=== PATIENT | male | born 1990 | race African-American/Black ===

== ENCOUNTER 2017-03-27 21:58 | Emergency (ER) | payer OTHER ==
[2017-03-27 22:07] VITALS: BP 126/66; PULSE 62; TEMP 99; BMI 28.8
--- NOTE | 2017-03-27 22:26 | PDOC ---
History of Present Illness - General Chief Complaint: Pain, Acute Stated Complaint: LEFT SIDE PAIN Time Seen by Provider: 03/27/17 22:20 History Source: Patient - History of Present Illness Initial Comments: 03/28/17 00:16 27 year old male c/o left flank pain intermittent in natre. denies NVD, abdominal pain, denies heavy lifting/ trauma. history of left sided kidney stone. 03/28/17 00:32 Past History - Past Medical History Allergies/Adverse Reactions: Allergies Allergy/AdvReac Type Severity Reaction Status Date / Time No Known Allergies Allergy Verified 03/27/17 23:24 Home Medications: Ambulatory Orders NK [No Known Home Medication] 03/27/17 COPD: No Other medical history: kidney stones - Suicide/Smoking/Psychosocial Hx Smoking History: Never smoked Have you smoked in the past 12 months: No Information on smoking cessation initiated: No Hx Alcohol Use: No Drug/Substance Use Hx: No Substance Use Type: None Review of Systems - Review of Systems Able to Perform ROS?: Yes Is the patient limited Welsh proficient: No Constitutional: No: Symptoms Reported, See HPI, Chills, Diaphoresis, Fever, Loss of Appetite, Malaise, Night Sweats, Weakness, Weight Stable, Unintentional Wgt. Loss, Unexplained wgt Loss, Other ABD/GI: No: Symptoms Reported, See HPI, Abdominal Distended, Abd. Pain w/ defecation, Blood Streaked Bowels, Constipated, Diarrhea, Difficulty Swallowing , Nausea, Poor Appetite, Poor Fluid Intake, Rectal Bleeding, Vomiting, Indigestion, Abdominal cramping, Tarry Stools, Other : Yes: Flank Pain (left). No: Symptoms Reported, See HPI, Burning, Dysuria, Discharge, Frequency, Hematuria, Incontinence, Pain, Urgency, Testicular Mass, Testicular Swelling, Lesions, Testicular Pain, Other *Physical Exam - Vital Signs Last Vital Signs Temp Pulse Resp BP Pulse Ox 99 F 62 18 126/66 99 03/27/17 22:03 03/27/17 22:03 03/27/17 22:03 03/27/17 22:03 03/27/17 22:03 - Physical Exam General Appearance: Yes: Appropriately Dressed Respiratory/Chest: positive: Lungs Clear, Normal Breath Sounds Gastrointestinal/Abdominal: positive: Normal Bowel Sounds, Soft. negative: Tender Musculoskeletal: positive: CVA Tenderness (L) (mild) ED Treatment Course - LABORATORY CBC & Chemistry Diagram: 03/27/17 23:15 03/27/17 23:15 *DC/Admit/Observation/Transfer Diagnosis at time of Disposition: Left flank pain - Discharge Dispostion Disposition: HOME - Referrals - Patient Instructions Printed Discharge Instructions: DI for Flank Pain Additional Instructions: drink plenty of fluids. follow up with your doctor take ibuprofen every 6 hours as needed for pain. return to the ED if symptoms worsen. - Post Discharge Activity Forms/Work/School Notes: Back to Work
[2017-03-27] MEDS ORDERED: SODIUM CHLORIDE 1,000 ML IV STA (22:37)
[2017-03-27] MEDS ORDERED: KETOROLAC TROMETHAMINE 30 MG/1 ML VIAL IVPUSH ONE (23:26)
[2017-03-27 23:30] LABS: BASO % 0.7 % (0-2.0); EOS % 1.8 % (0-4.5); LYMPH % 45.6 % (8-40); MCH 27.5 pg (25.7-33.7); MCHC 32.5 g/dl (32.0-35.9); MEAN CELL VOLUME 84.4 fl (80-96); MEAN PLT VOLUME 7.7 fl (7.5-11.1); MONO % 8.1 % (3.8-10.2); NEUT % 43.8 % (42.8-82.8); PLATELET COUNT 246 K/MM3 (134-434); RBC 5.45 M/mm3 (4.00-5.60); RDW 13.9 % (11.9-15.9); WHITE BLOOD COUNT 5.5 K/mm3 (4.0-10.0)
[2017-03-27] MEDS ORDERED: KETOROLAC TROMETHAMINE 30 MG/1 ML VIAL ONE (23:31)
[2017-03-27 23:53] LABS: ANION GAP 8 (8-16); BILIRUBIN,TOTAL 0.6 mg/dL (0.2-1.0); BLOOD UREA NITROGEN 9 mg/dL (7-18); CALCIUM 9.5 mg/dL (8.5-10.1); CHLORIDE 102 mmol/L (98-107); CO2 30 mmol/L (21-32); CREATININE 1.2 mg/dL (0.7-1.3); GLUCOSE,RANDOM 89 mg/dL (74-106); POTASSIUM 3.8 mmol/L (3.5-5.1); SGOT/AST 17 U/L (15-37); SGPT/ALT 25 U/L (12-78); SODIUM 140 mmol/L (136-145); TOT PROT 7.9 g/dl (6.4-8.2)
[2017-03-27 23:54] LABS: ALK PHOS 83 U/L (45-117)
[2017-03-28 01:58] LABS: URINE APPEARANCE TURBID; URINE BILIRUBIN NEGATIVE (NEGATIVE); URINE BLOOD NEGATIVE (NEGATIVE); URINE COLOR YELLOW; URINE GLUCOSE (UA) NEGATIVE (NEGATIVE); URINE KETONE NEGATIVE (NEGATIVE); URINE LEUK ESTERASE NEGATIVE (NEGATIVE); URINE NITRITE NEGATIVE (NEGATIVE); URINE PROTEIN NEGATIVE (NEGATIVE)
== END 2017-03-28 02:40 | disposition home or self-care (01) ==
LOC: JER 21:58
PROC: 3E0337Z Introduction of Electrolytic and Water Balance Substance into Peripheral Vein, Percutaneous Approach (ICD-10-PCS; principal; 2017-03-27)
PROC: 3E0333Z Introduction of Anti-inflammatory into Peripheral Vein, Percutaneous Approach (ICD-10-PCS; 2017-03-27)
DX: R10.32 Left lower quadrant pain (principal); Z87.442 Personal history of urinary calculi
CPT/HCPCS: 36415; 74176; 80053; 81003; 85025; 99282-25

== ENCOUNTER 2018-11-02 19:03 | Inpatient (IN) | payer MEDICARE, OTHER ==
[2018-11-02 19:23] VITALS: BMI 29.8
--- NOTE | 2018-11-02 21:17 | PDOC ---
History of Present Illness <Nadja Lakhani - Last Filed: 11/03/18 00:50> - General History Source: Patient Exam Limitations: No Limitations - History of Present Illness Initial Comments: 11/02/18 21:06 Patient is 28 year male with h/o kidney stone c/o LLQ abd pain since last night. Pain is a throbbing, colicky intermittent pain which radiates to the left flank now 8.5/10 associated with vomiting x 2 today. Pain is worse with laying down and with eating. States "I feel like I constantly have gas". Denies diarrhea, fever, had a normal BM today, (+) passing gas. Did not take any med for pain. (+) prior episode when had kidney stone but prior episode was worse. PMHX: as above PSOCHX: occ etoh, neg cig, neg drug ALL: NKDA GENERAL/CONSTITUTIONAL: No fever or chills. No weakness. No weight change. HEAD, EYES, EARS, NOSE AND THROAT: No change in vision. No ear pain or discharge. No sore throat. CARDIOVASCULAR: No chest pain or shortness of breath. RESPIRATORY: No cough, wheezing, or hemoptysis. GASTROINTESTINAL: (+) nausea, vomiting, (-) diarrhea or constipation. No rectal bleeding. GENITOURINARY: No dysuria, frequency, or change in urination. MUSCULOSKELETAL: No joint or muscle swelling or pain. No neck or back pain. SKIN AND BREASTS: No rash or easy bruising. NEUROLOGIC: No headache, vertigo, loss of consciousness, or loss of sensation. PSYCHIATRIC: No depression or anxiety. ENDOCRINE: No increased thirst. No abnormal weight change. HEMATOLOGIC/LYMPHATIC: No anemia, easy bleeding, or history of blood clots. ALLERGIC/IMMUNOLOGIC: No hives or skin allergy. No latex allergy. GENERAL: The patient is awake, alert, and fully oriented, in no acute distress. HEAD: Normal with no signs of trauma. EYES: Pupils equal, round and reactive to light, extraocular movements intact, sclera anicteric, conjunctiva clear. ENT: Ears normal, nares patent, oropharynx clear without exudates. Moist mucous membranes. NECK: Normal range of motion, supple without lymphadenopathy, JVD, or masses. LUNGS: Breath sounds equal, clear to auscultation bilaterally. No wheezes, and no crackles. HEART: Regular rate and rhythm, normal S1 and S2 without murmur, rub. ABDOMEN: Soft, (+) tenderness LLQ, (-) CVAT, normoactive bowel sounds. No guarding, no rebound. No masses. EXTREMITIES: Normal range of motion, no edema. No clubbing or cyanosis. No cords, erythema, or tenderness. NEUROLOGICAL: Cranial nerves II through XII grossly intact. Normal speech, normal gait. PSYCH: Normal mood, normal affect. SKIN: Warm, Dry, normal turgor, no rashes or lesions noted. <Blanca Scott - Last Filed: 11/03/18 01:35> - General Chief Complaint: Pain, Acute Stated Complaint: LOWER ABDOMINAL PAIN Time Seen by Provider: 11/02/18 20:51 Past History <Nadja Lakhani - Last Filed: 11/03/18 00:50> - Past Medical History COPD: No - Suicide/Smoking/Psychosocial Hx Smoking History: Never smoked Have you smoked in the past 12 months: No Hx Alcohol Use: Yes Drug/Substance Use Hx: No Substance Use Type: None <Blanca Scott - Last Filed: 11/03/18 01:35> - Past Medical History Allergies/Adverse Reactions: Allergies Allergy/AdvReac Type Severity Reaction Status Date / Time No Known Allergies Allergy Verified 11/02/18 19:19 Home Medications: Ambulatory Orders NK [No Known Home Medication] 03/27/17 *Physical Exam - Vital Signs Last Vital Signs Temp Pulse Resp BP Pulse Ox 100.3 F H 99 H 18 118/91 100 11/02/18 19:19 11/02/18 19:19 11/02/18 19:19 11/02/18 19:19 11/02/18 19:19 <Nadja Lakhani - Last Filed: 11/03/18 00:50> - Vital Signs Last Vital Signs Temp Pulse Resp BP Pulse Ox 100.3 F H 99 H 18 118/91 100 11/02/18 19:19 11/02/18 19:19 11/02/18 19:19 11/02/18 19:19 11/02/18 19:19 <Balnca Scott - Last Filed: 11/03/18 01:35> ED Treatment Course - LABORATORY CBC & Chemistry Diagram: 11/02/18 21:30 11/02/18 21:30 - ADDITIONAL ORDERS Additional order review: Laboratory Results 11/02/18 11/02/18 22:00 21:30 Sodium 139 Potassium 3.7 Chloride 102 Carbon Dioxide 30 Anion Gap 7 L BUN 9.0 Creatinine 1.1 Est GFR (CKD-EPI)AfAm 103.85 Est GFR (CKD-EPI)NonAf 89.61 Random Glucose 84 Calcium 9.4 Total Bilirubin 1.0 AST 17 ALT 27 Alkaline Phosphatase 80 Total Protein 8.4 H Albumin 4.2 Lipase 99 Urine Color Yellow Urine Appearance Clear Urine pH 7.0 Ur Specific [place] 1.020 Urine Protein Trace Urine Glucose (UA) Negative Urine Ketones Negative Urine Blood Negative Urine Nitrite Negative Urine Bilirubin Negative Urine Urobilinogen 1.0 Ur Leukocyte Esterase Negative Urine WBC (Auto) 1.1 Urine RBC (Auto) 0.6 Urine Casts (Auto) 7.8 U Epithel Cells (Auto) 1.4 Urine Bacteria (Auto) 9.5 11/02/18 21:30 RBC 5.34 MCV 85.1 MCHC 32.4 RDW 13.2 MPV 7.5 Neutrophils % 75.2 D Lymphocytes % 15.6 D Monocytes % 8.8 Eosinophils % 0.1 D Basophils % 0.3 - Medications Given in the ED: ED Medications Discontinued Medications Generic Name Dose Route Start Last Admin Trade Name Zulay PRN Reason Stop Dose Admin Ketorolac Tromethamine 30 mg 11/02/18 21:18 11/02/18 21:38 Toradol Injection - IVPUSH 11/02/18 21:19 30 mg ONCE ONE Administration Morphine Sulfate 4 mg 11/02/18 21:52 11/02/18 22:38 Morphine Injection - IVPUSH 11/02/18 21:53 Not Given ONCE ONE Morphine Sulfate 2 mg 11/02/18 22:23 11/02/18 22:38 Morphine Sulfate IVPUSH 11/02/18 22:24 2 mg ONCE ONE Administration Sodium Chloride 1,000 ml 11/02/18 21:18 11/02/18 21:38 Normal Saline - IV 11/02/18 21:19 1,000 ml ONCE ONE Administration <Nadja Lakhani - Last Filed: 11/03/18 00:50> - LABORATORY CBC & Chemistry Diagram: 11/02/18 21:30 11/02/18 21:30 <TylerBlanca - Last Filed: 11/03/18 01:35> Medical Decision Making - Medical Decision Making 11/02/18 21:06 Patient is 28 year male with h/o kidney stone c/o LLQ abd pain since last night. Pain is a throbbing colicky intermittent pain which radiates to the left flank now 8.5/10 associated with vomiting x 2 today. Pain is worse with laying down and with eating. States "I feel like I constantly have gas". Denies diarrhea, fever, had a normal BM today, (+) passing gas. Did not take any med for pain. (+) prior episode when had kidney stone but prior episode was worse. Symptoms consistent with kidney stone labs, UA ct abd/pelvis pain meds ivf Patient states the pain now radiates to the RLQ. 11/03/18 00:25 Patient Full Name: RENETTA BRISENO Patient Accession No: [id number] Patient : 1990 Reason for Exam: left flank pain Referring Physician: Patient Name: SUZANNA JACKSON THIS IS A PRELIMINARY REPORT FROM [facility] CO[facility]IN[facility] DATE OF SERVICE: 2018-11-02 23:19:24 IMAGES: [id number] EXAM: CT ABDOMEN AND PELVIS WITHOUT CONTRAST Normal diameter proximal appendix, 4 mm appendicolith in mid lumen, and enlarged distal appendix measuring 1 cm diameter. Subtle periappendiceal fat stranding, although not disproportionate to stranding in left paracolic space, therefore uncertain whether this represents inflammation versus trace ascites. Correlate clinically for acute appendicitis and if indicated, consider further evaluation with ultrasound or followup CT (limited to pelvis) after oral contrast. No bowel obstruction, colitis, or free air. Trace ascites lower pelvis. No nephrolithiasis, ureterolithiasis or obstructive uropathy. No bladder calculi. Unremarkable pancreas and gallbladder. Enlarged right inguinal lymph nodes, possibly inflammatory. One or more of the following dose reduction techniques were used: automated exposure control, adjustment of the mA and/or kV according to patient size, use of iterative reconstructive technique. THIS DOCUMENT HAS BEEN ELECTRONICALLY SIGNED Merari Moura M.D. 11/03/2018 00:19 CAREN Beal. Please call [facility] Member [phone] ([phone]) with questions. INTERPRETING RADIOLOGIST: Merari Moura MD Electronically Signed: Nov 03, 2018 12:20AM EDT Called Dr. Lila hughes. Case d/w Dr. Batres who recommeds Zosyn 3.375gm IV, NPO D/W hospitalist and will admit <Blanca Scott - Last Filed: 11/03/18 01:35> *DC/Admit/Observation/Transfer - Discharge Dispostion Decision to Admit order: Yes <Nadja Lakhani - Last Filed: 11/03/18 00:50> <Blanca Scott - Last Filed: 11/03/18 01:35> Diagnosis at time of Disposition: Appendicitis Qualifiers: Appendicitis type: acute appendicitis Acute appendicitis type: unspecified acute appendicitis type Qualified Code(s): K35.80 - Unspecified acute appendicitis - Discharge Dispostion Condition at time of disposition: Guarded
[2018-11-02] MEDS ORDERED: SODIUM CHLORIDE 0.9% 500 ML INFUS.BAG IV ONE (21:18)
[2018-11-02] MEDS ORDERED: KETOROLAC TROMETHAMINE 30 MG/1 ML VIAL IVPUSH ONE (21:18)
[2018-11-02] MEDS ORDERED: KETOROLAC TROMETHAMINE 30 MG/1 ML VIAL ONE (21:26)
[2018-11-02 21:48] LABS: BASO % 0.3 % (0-2.0); EOS % 0.1 % (0-4.5); HEMATOCRIT 45.5 % (35.4-49); HEMOGLOBIN 14.7 GM/dL (11.7-16.9); LYMPH % 15.6 % (8-40); MCH 27.6 pg (25.7-33.7); MCHC 32.4 g/dl (32.0-35.9); MEAN CELL VOLUME 85.1 fl (80-96); MEAN PLT VOLUME 7.5 fl (7.5-11.1); MONO % 8.8 % (3.8-10.2); NEUT % 75.2 % (42.8-82.8); PLATELET COUNT 245 K/MM3 (134-434); RBC 5.34 M/mm3 (4.00-5.60); RDW 13.2 % (11.9-15.9)
[2018-11-02] MEDS ORDERED: morphine CARPU-JECT 4 MG/1 ML DISP.SYRIN IVPUSH ONE (21:52)
[2018-11-02 22:04] LABS: URINE APPEARANCE Clear; URINE BILIRUBIN Negative (NEGATIVE); URINE COLOR Yellow; URINE GLUCOSE (UA) Negative (NEGATIVE); URINE KETONE Negative (NEGATIVE); URINE LEUK ESTERASE Negative (NEGATIVE); URINE NITRITE Negative (NEGATIVE); URINE PROTEIN Trace (NEGATIVE)
[2018-11-02 22:19] LABS: ALBUMIN 4.2 g/dl (3.4-5.0); CALCIUM 9.4 mg/dL (8.5-10.1); CREATININE 1.1 mg/dL (0.55-1.3); POTASSIUM 3.7 mmol/L (3.5-5.1); TOT PROT 8.4 g/dl (6.4-8.2)
[2018-11-02] MEDS ORDERED: morphine SULFATE 4 MG/ML VIAL ONE (22:22)
[2018-11-02] MEDS ORDERED: MORPHINE SULFATE 2 MG/ML VIAL IVPUSH ONE (22:23)
[2018-11-02 22:26] LABS: EPI CELLS 1.4 /HPF (0-5/HPF); HYALINE CASTS 7.8 /lpf (0-8); URINE BACTERIA 9.5 /hpf (NEGATIVE); URINE RBC 0.6 /hpf (0-4); URINE WBC 1.1 /hpf (0-5)
[2018-11-02 22:45] LABS: ANISOCYTOSIS 0; MACROCYTOSIS 1+; PLATELET ESTIMATE NORMAL
[2018-11-03] MEDS ORDERED: PIPERACILLIN/TAZOB 3.375 GM 3.375 GM in DEXTROSE 5%-WATER - 50 ML IVPB ONE (00:45)
--- NOTE | 2018-11-03 01:02 | PN ---
Teaching Attending Note Name of Resident: Laquita Solis ATTENDING PHYSICIAN STATEMENT I saw and evaluated the patient. I reviewed the resident's note and discussed the case with the resident. I agree with the resident's findings and plan as documented. SUBJECTIVE: Patient is 28 year man with PMH of Kidney stone presenting with LLQ abdominal pain since last night. Pain is throbbing, colicky, and intermittent. Pain radiates to the left flank now 8.5/10 associated with vomiting twice today. Pain is worse with laying down and with eating. States "I feel like I constantly have gas". Denies diarrhea, had a normal BM today and is passing gas. Did not take any medication for pain. Denies fever, chills, dysuria, dizziness, SOB or chest pain. Denies sick contacts, recent travel, alcohol abuse or use of illicit drugs. No FH of inflammatory bowel disease. OBJECTIVE: Alert Vital Signs Period Temp Pulse Resp BP Sys/Perales Pulse Ox Last 24 Hr 100.3 F 99 18 118/91 100 HEENT: No Jaundice, eye redness or discharge, PERRLA, EOMI. Normocephalic, atraumatic. External ears are normal and hearing is grossly intact. No nasal discharge. Neck: Supple, nontender. No palpable adenopathy or thyromegaly. No JVD Chest: Good effort. Clear to auscultation and percussion. Heart: Regular. No S3, rub or murmur Abdomen: Not distended, soft, nontender and no HSM. No rebound or guarding. Normal bowel sounds. Ext: Peripheral pulses intact. No leg edema. Skin: Warm and dry. No petechiae, rash or ecchymosis. Neuro: Alert. Oriented x3. CN 2-12 grossly intact. Sensation grossly intact in all four extremities and DTR are symmetric. Psych: Appropriate mood and affect. Good insight. Current Medications Generic Name Dose Route Start Last Admin Trade Name Freq PRN Reason Stop Dose Admin Piperacillin Sod/Tazobactam 50 mls @ 100 mls/hr 11/03/18 00:45 Sod 3.375 gm/ Dextrose IVPB 11/03/18 01:14 ONCE ONE Protocol Home Medications Medication Instructions Recorded NK [No Known Home Medication] 03/27/17 Abnormal Lab Results 11/02/18 21:30 Anion Gap 7 L Total Protein 8.4 H ASSESSMENT AND PLAN: 1. Appendicitis - Preliminary reading of CT abdomen/pelvis with out contrast is "possible appendicitis". In the ER he got IV toradol, morphine, zosyn and IV NS. Will keep him NPO, get EKG, PT/INR. Surgery consulted. 2. DVT prophylaxis - SCD, early ambulation. 3. Advance directives - Full code
--- NOTE | 2018-11-03 01:50 | HP ---
CHIEF COMPLAINT: LLQ pain PCP: None HISTORY OF PRESENT ILLNESS: Patient is a 28 year old male with PMH of kidney stone who presents with LLQ pain since last night. Pain is colicky, intermittent, and radiates to his L flank. He reports associated nausea and nbnb vomiting x2. No change in appetite but he does endorse that the pain is exacerbated with eating. Pt reports normal BM and +gas (no diarrhea, constipation, blood in stools). He denies any fevers, chills, SOB, diaphoresis, urinary symptoms, penile pain or discharge. No changes in his diet. No recent travel or sick contacts. Pt is sexually active with one partner, no history of STIs. He has not taken any meds for pain. ER course was notable for: (1) CTAP: 4mm appendicolith in mid lumen, and enlarged distal appendx measuring 1cm. Subtle periappendiceal fat stranding (possible inflammation vs. trace ascites). Otherwise unremarkable. (2) Surgery was consulted, want admission and started on Zosyn. (3) Recent Travel: denies PAST MEDICAL HISTORY: Kidney stone - medically treated PAST SURGICAL HISTORY: Denies Social History: Smoking: denies Alcohol: occasional, socially Drugs: denies Family History: Grandfather: DM Allergies No Known Allergies Allergy (Verified 11/02/18 19:19) HOME MEDICATIONS: Home Medications Medication Instructions Recorded NK [No Known Home Medication] 03/27/17 REVIEW OF SYSTEMS CONSTITUTIONAL: Absent: fever, chills, diaphoresis, generalized weakness, malaise, loss of appetite, weight change HEENT: Absent: rhinorrhea, nasal congestion, throat pain, throat swelling, difficulty swallowing, mouth swelling, ear pain, eye pain, visual changes CARDIOVASCULAR: Absent: chest pain, syncope, palpitations, irregular heart rate, lightheadedness , peripheral edema RESPIRATORY: Absent: cough, shortness of breath, dyspnea with exertion, orthopnea, wheezing, stridor, hemoptysis GASTROINTESTINAL: abdominal pain, nausea, vomiting Absent: abdominal distension, diarrhea, constipation, melena, hematochezia GENITOURINARY: Absent: dysuria, frequency, urgency, hesitancy, hematuria, flank pain, genital pain MUSCULOSKELETAL: Absent: myalgia, arthralgia, joint swelling, back pain, neck pain SKIN: Absent: rash, itching, pallor HEMATOLOGIC/IMMUNOLOGIC: Absent: easy bleeding, easy bruising, lymphadenopathy, frequent infections ENDOCRINE: Absent: unexplained weight gain, unexplained weight loss, heat intolerance, cold intolerance NEUROLOGIC: Absent: headache, focal weakness or paresthesias, dizziness, unsteady gait, seizure, mental status changes, bladder or bowel incontinence PSYCHIATRIC: Absent: anxiety, depression, suicidal or homicidal ideation, hallucinations. PHYSICAL EXAMINATION Vital Signs - 24 hr 11/02/18 19:19 Temperature 100.3 F H Pulse Rate 99 H Respiratory 18 Rate Blood Pressure 118/91 O2 Sat by Pulse 100 Oximetry (%) GENERAL: Awake, alert, and fully oriented, in no acute distress. HEAD: Normal with no signs of trauma. EYES: Pupils equal, round and reactive to light, extraocular movements intact, sclera anicteric, conjunctiva clear. No lid lag. EARS, NOSE, THROAT: Ears normal, nares patent, oropharynx clear without exudates. Moist mucous membranes. NECK: Normal range of motion, supple without lymphadenopathy, JVD, or masses. LUNGS: Breath sounds equal, clear to auscultation bilaterally. No wheezes, and no crackles. No accessory muscle use. HEART: Regular rate and rhythm, normal S1 and S2 without murmur, rub or gallop. ABDOMEN: LLQ tenderness. Neg gordon's, Rosving;s, psoas and obturator. Soft, not distended, normoactive bowel sounds, no guarding, no rebound, no masses. No hepatomegaly or splenomegaly. MUSCULOSKELETAL: Normal range of motion at all joints. No bony deformities or tenderness. No CVA tenderness. UPPER EXTREMITIES: 2+ pulses, warm, well-perfused. No cyanosis. No clubbing. No peripheral edema. LOWER EXTREMITIES: 2+ pulses, warm, well-perfused. No calf tenderness. No peripheral edema. NEUROLOGICAL: Cranial nerves II-XII intact. Normal speech. Normal gait. PSYCHIATRIC: Cooperative. Good eye contact. Appropriate mood and affect. SKIN: Warm, dry, normal turgor, no rashes or lesions noted, normal capillary refill. Laboratory Results - last 24 hr CBC, BMP 11/02/18 21:30 11/02/18 21:30 Urine Test Results Urine Color Yellow Urine Appearance Clear Urine pH 7.0 (5.0-8.0) Ur Specific [place] 1.020 (1.010-1.035) Urine Protein Trace (NEGATIVE) Urine Glucose (UA) Negative (NEGATIVE) Urine Ketones Negative (NEGATIVE) Urine Blood Negative (NEGATIVE) Urine Nitrite Negative (NEGATIVE) Urine Bilirubin Negative (NEGATIVE) Ur Leukocyte Esterase Negative (NEGATIVE) ASSESSMENT/PLAN: Patient is a 28 year old male with PMH of kidney stone who presents with LLQ pain with associated nausea and vomiting. #LLQ pain CTAP: 4mm appendicolith in mid lumen, and enlarged distal appendx measuring 1cm. Subtle periappendiceal fat stranding (possible inflammation vs. trace ascites). Otherwise unremarkable. Surgery consulted from ED. Recommend starting on zosyn and will see pt in am. NPO for now Ordering INR, PT, type and screen, EKG anticipating possible surgery Pt is not in any acute distress with no obvious signs of infection. Will cont to monitor. 2gm IV morphine prn for pain #FEN IV LR @ 100ml/hr NPO, anticipating possible surgery #DVT ppx SCDs #Dispo Monitor on med-surg Visit type - Emergency Visit Emergency Visit: Yes ED Registration Date: 11/03/18 Care time: The patient presented to the Emergency Department on the above date and was hospitalized for further evaluation of their emergent condition. - New Patient This patient is new to me today: Yes Date on this admission: 11/03/18 - Critical Care Critical Care patient: No ATTENDING PHYSICIAN STATEMENT I saw and evaluated the patient. I reviewed the resident's note and discussed the case with the resident. I agree with the resident's findings and plan as documented. SUBJECTIVE: OBJECTIVE: ASSESSMENT AND PLAN:
[2018-11-03] MEDS ORDERED: LACTATED RINGERS SOLUTION 1,000 ML/1,000 ML INFUS.BAG IV SCH ×2 (02:15→11:22)
[2018-11-03 02:44] LABS: INR 1.17 (0.83-1.09); PROTHROMBIN TIME (PATIENT) 13.8 SEC (9.7-13.0)
[2018-11-03] MEDS ORDERED: PIPERACILLIN/TAZOB 3.375 GM 3.375 GM in DEXTROSE 5%-WATER - 50 ML IVPB SCH (06:00)
[2018-11-03] MEDS ORDERED: PIPERACILLIN/TAZOB 3.375 GM 3.375 GM/50 ML BAG IVPB ONE (06:04)
[2018-11-03 07:28] LABS: ALBUMIN 3.3 g/dl (3.4-5.0); BILIRUBIN,TOTAL 1.4 mg/dL (0.2-1); CALCIUM 8.9 mg/dL (8.5-10.1); POTASSIUM 3.6 mmol/L (3.5-5.1); TOT PROT 6.8 g/dl (6.4-8.2)
[2018-11-03 07:30] LABS: BASO % 0.4 % (0-2.0); EOS % 0.7 % (0-4.5); HEMATOCRIT 39.6 % (35.4-49); HEMOGLOBIN 13.3 GM/dL (11.7-16.9); LYMPH % 20.9 % (8-40); MCH 28.1 pg (25.7-33.7); MCHC 33.5 g/dl (32.0-35.9); MEAN CELL VOLUME 83.9 fl (80-96); MEAN PLT VOLUME 7.6 fl (7.5-11.1); MONO % 10.8 % (3.8-10.2); NEUT % 67.2 % (42.8-82.8); PLATELET COUNT 217 K/MM3 (134-434); RBC 4.71 M/mm3 (4.00-5.60); RDW 13.1 % (11.9-15.9); WHITE BLOOD COUNT 8.1 K/mm3 (4.0-10.0)
--- NOTE | 2018-11-03 08:05 | CONSULT ---
- Consultation REQUESTING PROVIDER: Jim Jain - General Surgery CONSULT REQUEST: We have been asked to surgically evaluate this patient for LLQ --> RLQ abd pain PCP:Dain Canada MD HPI: Called to eval 28 yo male with PMHx as noted below. Presents to [facility] ED w/ c/o LLQ pain that started 11/01/18. States pain comes and goes and radiates to his left flank. He thinks it's a kidney stone on said side as he has a + history of. Reports 2 episodes on NBNB vomiting prior too coming to hospital. Last meal eaten was dinner Saturday night. Admits to losing his appetite since pain began. While in the ED he had a CTAP (without contrast) which identified 4mm appendicolith in mid-lumen, enlarged distal appendix measuring 1cm. Subtle periappendiceal fat stranding. In the ED his WBC 10. He was started on Zosyn 3/ 375 gm IVPB. Denies diarrhea, constipation or blood in stool. Denies fever or chills. Denies CP, palpitations, SOB, DIAZ or cough. Denies hematuria. Denies recent travel or sick contacts. Denies h/o STIs. PMHx: Kidney stone - medically treated PSHx: Denies Home Meds: Denies Allergies: Denies. Social History: Smoking: denies Alcohol: occasional, socially Drugs: denies ROS: All systems reviewed and considered negatve except for what's contained in the HPI. PE: GENERAL: Awake, alert, and fully oriented, in no acute distress. HEAD: Normal with no signs of trauma. EYES: PERRL, sclera anicteric, conjunctiva clear. NECK: Normal ROM, supple without lymphadenopathy, JVD, or masses. LUNGS: CTA bilat anteriorly HEART: RRR ABDOMEN: + Rovsings, + Psoas. Initially no McBurney's point per ED evaluation but now + McBurney's during this evaluation. Not distended, normoactive bowel sounds, No appreciable organomegaly. MUSCULOSKELETAL: Normal ROM at all joints. No bony deformities or tenderness. No CVA tenderness bilat UE: 2+ pulses, warm, well-perfused. No cyanosis. Cap refill <2 seconds. No peripheral edema. LE: 2+ pulses, warm, well-perfused. No calf tenderness. No peripheral edema. NEUROLOGICAL: Normal speech, gait not observed. PSYCH: Cooperative. Good eye contact. Appropriate mood and affect. SKIN: Warm, dry, normal turgor, no rashes or lesions noted. Last Vital Signs Temp Pulse Resp BP Pulse Ox 98.7 F 85 18 137/68 99 11/03/18 02:02 11/03/18 02:02 11/03/18 02:02 11/03/18 02:02 11/03/18 02:02 CBC, BMP 11/03/18 06:27 11/03/18 06:27 INR, PTT INR 1.17 (0.83-1.09) H 11/03/18 02:14 Blood Type Blood Type B POSITIVE 11/03/18 02:14 Urine Results Urine Color Yellow 11/02/18 22:00 Urine Appearance Clear 11/02/18 22:00 Urine pH 7.0 (5.0-8.0) 11/02/18 22:00 Ur Specific [place] 1.020 (1.010-1.035) 11/02/18 22:00 Urine Protein Trace (NEGATIVE) 11/02/18 22:00 Urine Glucose (UA) Negative (NEGATIVE) 11/02/18 22:00 Urine Ketones Negative (NEGATIVE) 11/02/18 22:00 Urine Blood Negative (NEGATIVE) 11/02/18 22:00 Urine Nitrite Negative (NEGATIVE) 11/02/18 22:00 Urine Bilirubin Negative (NEGATIVE) 11/02/18 22:00 Ur Leukocyte Esterase Negative (NEGATIVE) 11/02/18 22:00 Hepatic Panel Total Bilirubin 1.4 mg/dL (0.2-1) H 11/03/18 06:27 AST 13 U/L (15-37) L 11/03/18 06:27 ALT 20 U/L (13-61) 11/03/18 06:27 Alkaline Phosphatase 67 U/L (45-117) 11/03/18 06:27 Albumin 3.3 g/dl (3.4-5.0) L 11/03/18 06:27 Problem List - Problems (1) Appendicitis Assessment/Plan: 28 yo male presents to [facility] ED with c/o LLQ pain that started this past Saturday night. Pain has since migrated to Q. admitted with appendicitis (due to appendocolith and mild leukocytosis) as seen on CT A/P (noncon study). Physical exam also supports working diagnosis. 1. Cont NPO & IVF 2. Tylenol 650 mg for fever > 100.4F 3. Pain management PRN 3. WBC normalized so can stop IVABX 4. Going to OR today w/ Dr. Jain for laprascopic appendectomy, possible open 5. Cont medical optimization / clearance for above procedure 6. Above plan discussed with Dr. Jain and agrees Code(s): K37 - UNSPECIFIED APPENDICITIS Qualifiers: Appendicitis type: acute appendicitis Acute appendicitis type: unspecified acute appendicitis type Qualified Code(s): K35.80 - Unspecified acute appendicitis (2) Appendicolith Code(s): K38.9 - DISEASE OF APPENDIX, UNSPECIFIED Visit type - Case Type Case Type: ED Admission - Emergency Emergency Visit: Yes ED Registration Date: 11/03/18 Care time: The patient presented to the Emergency Department on the above date and was hospitalized for further evaluation of their emergent condition. - New patient This patient is new to me today: Yes Date on this admission: 11/03/18
[2018-11-03] MEDS ORDERED: fentaNYL CITRATE 250 MCG/5 ML VIAL ONE (09:44)
[2018-11-03] MEDS ORDERED: MIDAZOLAM HCL 2 MG/2 ML SINGLE DOSE VIAL ONE (09:44)
[2018-11-03] MEDS ORDERED: ROCURONIUM BROMIDE 50 MG/5 ML SYRINGE ONE (09:45)
[2018-11-03] MEDS ORDERED: PROPOFOL 20 ML ONE ×3 (09:45→09:51)
[2018-11-03] MEDS ORDERED: DEXAMETHASONE SOD PHOSPHATE 4 MG/1 ML VIAL ONE (10:00)
[2018-11-03] MEDS ORDERED: ACETAMINOPHEN 325 MG TABLET (FP) PO PRN (10:06)
[2018-11-03] MEDS ORDERED: oxyCODONE HCL 5 MG TABLET PO PRN (10:06)
[2018-11-03] MEDS ORDERED: GLYCOPYRROLATE 0.2 MG/1 ML VIAL ONE (10:27)
[2018-11-03] MEDS ORDERED: NEOSTIGMINE METHYLSULFATE 0.5 MG/ML - 10 ML MDV ONE (10:27)
[2018-11-03] MEDS ORDERED: ONDANSETRON 4 MG/2 ML VIAL IVPUSH PRN (10:31)
[2018-11-03] MEDS ORDERED: ACETAMINOPHEN 1000 MG/100 ML VIAL (NON FORMULARY) IVPB PRN (10:32)
--- NOTE | 2018-11-03 10:57 | EKG ---
Test Reason : Blood Pressure : / mmHG Vent. Rate : 062 BPM Atrial Rate : 062 BPM P-R Int : 178 ms QRS Dur : 120 ms QT Int : 374 ms P-R-T Axes : 039 001 006 degrees QTc Int : 379 ms NORMAL SINUS RHYTHM WITH SINUS ARRHYTHMIA NON-SPECIFIC INTRA-VENTRICULAR CONDUCTION DELAY BORDERLINE ECG NO PREVIOUS ECGS AVAILABLE Confirmed by DAGOBERTO NIX MD ([id number]) on 11/03/2018 10:56:42 AM Referred By: Confirmed By:DAGOBERTO NIX MD
--- NOTE | 2018-11-03 11:33 | CONS ---
DATE OF CONSULTATION: 11/03/2018 REASON FOR CONSULTATION: Acute appendicitis. This is an inpatient consultation as a request of the emergency room physician. BRIEF HISTORY: This is a 28-year-old male who presented to [facility] with 1-day history of lower abdominal pain. He had a CAT scan of his abdomen and pelvis, which was consistent with an appendicolith toward the distal 2/3 and dilatation beyond that. His pain suddenly moved to the right lower quadrant after the CAT scan report became available, and he was noted to have right lower quadrant tenderness. The patient was admitted to [facility]. He was started on intravenous antibiotics and had a low-grade fever of 100.3. His white blood cell count has remained normal. PAST MEDICAL HISTORY: Negative. PAST SURGICAL HISTORY: Nil. SOCIAL HISTORY: Denies tobacco. Admits to occasional alcohol consumption. He has been encouraged to quit. ALLERGIES: He has NKDA. MEDICATIONS: Takes no medications. REVIEW OF SYSTEMS: General: Denies fatigue or malaise. Cardiac: Denies chest pain or palpitations. Respiratory: Denies shortness of breath or wheeze. Gastrointestinal: As in HPI. Denies diarrhea. Denies blood in his stool. Denies nausea, denies vomiting, denies recent weight loss. Genitourinary: Denies dysuria. Musculoskeletal: Denies joint pain. Psychiatric: Denies anxiety, depression, or hearing voices. PHYSICAL EXAMINATION: General: This is a well-developed, well-nourished 28-year-old male in no distress. Vital Signs: He is afebrile. HEENT: His head is normocephalic. His sclerae are anicteric. Neck: Supple. Chest: Clear. Abdomen: Soft. He has localized, mild right lower quadrant tenderness without rebound or guarding. Extremities: No edema. LABORATORIES: His white blood count is normal. There is no shift. His coagulation profile is unremarkable. His chemistries are unremarkable. His urinalysis is unremarkable. IMAGING: As in HPI. ASSESSMENT: A 28-year-old male with lower abdominal pain, right lower quadrant tenderness, CAT scan evidence of acute appendicitis. Clinically, this is acute appendicitis. PLAN: I agree with admission. I agree with Zosyn antibiotic to cover E. coli and other gram-negative as well as enteric-related trung. At this point, we will move in the direction of surgery. Risks and benefits of surgery have been explained to the patient in detail. These are including, but not limited to, the possibility of conversion to open, possibility of injury to viscera or bladder, possibility of blood loss requiring blood transfusion, possibility of future hernia, possibility of future obstruction plus a multitude of medical risks including, but not limited to, cardiac, neurologic, pulmonary, and vascular complications, even . Patient understanding these risks and is agreeable to surgery. The patient is also offered medical management of appendicitis and declines. He prefers a more definitive nature of surgery, likely decreased length of stay, the ability to pathologically evaluate the appendix, and prevention of future recurrence. At this point, patient will continue antibiotic, and arrangements will be made for surgery. DO MEGAN PACHECO/[id number]
--- NOTE | 2018-11-03 11:40 | PN ---
Physical Exam: SUBJECTIVE: Patient seen and examined at bedside. No acute events overnight. Pt now complaining of 6/10 RLQ abd pain as well as periumbilical pain. Denies nausea/vomiting at this time. OBJECTIVE: Vital Signs Temperature 98.7 F 11/03/18 02:02 Pulse Rate 85 11/03/18 02:02 Respiratory Rate 18 11/03/18 02:02 Blood Pressure 137/68 11/03/18 02:02 O2 Sat by Pulse Oximetry (%) 99 11/03/18 02:02 Pleasant, well-appearing male. AAOx3. NAD. Resting comfortably in bed. Neck supple, NT. No LAD noted. Lungs CTA B/L. No wheezes, rhonchi, rales noted. Symmetric chest rise. Heart RRR, Normal S1, S2. No murmurs, rubs, gallop noted. Abd soft. +TTP RLQ abd pain. -Ramesh's sign. +McBurney's point. -Rovsing's sign. No peripheral edema noted. 2+ dorsalis pedis pulses noted. CN II-XII intact. Facial symmetry noted. Normal speech. CBCD WBC 8.1 K/mm3 (4.0-10.0) 11/03/18 06:27 RBC 4.71 M/mm3 (4.00-5.60) 11/03/18 06:27 Hgb 13.3 GM/dL (11.7-16.9) 11/03/18 06:27 Hct 39.6 % (35.4-49) 11/03/18 06:27 MCV 83.9 fl (80-96) 11/03/18 06:27 MCHC 33.5 g/dl (32.0-35.9) 11/03/18 06:27 RDW 13.1 % (11.9-15.9) 11/03/18 06:27 Plt Count 217 K/MM3 (134-434) 11/03/18 06:27 MPV 7.6 fl (7.5-11.1) 11/03/18 06:27 CMP Sodium 140 mmol/L (136-145) 11/03/18 06:27 Potassium 3.6 mmol/L (3.5-5.1) 11/03/18 06:27 Chloride 107 mmol/L (98-107) 11/03/18 06:27 Carbon Dioxide 27 mmol/L (21-32) 11/03/18 06:27 Anion Gap 7 MMOL/L (8-16) L 11/03/18 06:27 BUN 9.0 mg/dL (7-18) 11/03/18 06:27 Creatinine 1.0 mg/dL (0.55-1.3) 11/03/18 06:27 Calcium 8.9 mg/dL (8.5-10.1) 11/03/18 06:27 Total Bilirubin 1.4 mg/dL (0.2-1) H 11/03/18 06:27 AST 13 U/L (15-37) L 11/03/18 06:27 ALT 20 U/L (13-61) 11/03/18 06:27 Alkaline Phosphatase 67 U/L (45-117) 11/03/18 06:27 Total Protein 6.8 g/dl (6.4-8.2) 11/03/18 06:27 Albumin 3.3 g/dl (3.4-5.0) L 11/03/18 06:27 Active Medications Acetaminophen (Tylenol -) 650 mg PO Q4H PRN PRN Reason: FEVER Acetaminophen (Ofirmev Injection -) 1,000 mg IVPB Q6H PRN PRN Reason: PAIN OR FEVER Enoxaparin Sodium (Lovenox -) 40 mg SQ DAILY [facility] Lactated Ringer's (Lactated Ringers Solution) 1,000 ml in 1,000 mls @ 100 mls/ hr IV ASDIR ROBIN Piperacillin Sod/Tazobactam (Sod 3.375 gm/ Dextrose) 50 mls @ 100 mls/hr IVPB Q6H [facility] Stop: 11/04/18 00:29 Morphine Sulfate (Morphine Sulfate) 4 mg IVPB Q3H PRN PRN Reason: PAIN LEVEL 7 - 10 Ondansetron HCl (Zofran Injection) 4 mg IVPUSH Q6H PRN PRN Reason: NAUSEA AND/OR VOMITING Oxycodone HCl (Roxicodone -) 7.5 mg PO Q4H PRN PRN Reason: PAIN LEVEL 4 - 6 Pantoprazole Sodium (Protonix Iv) 40 mg IVPUSH DAILY [facility] ASSESSMENT/PLAN: 28M with PMH of kidney stone who presents with LLQ pain with associated nausea and vomiting. #LLQ pain -CTAP (prelim read): 4mm appendicolith in mid lumen, and enlarged distal appendix measuring 1cm. Subtle periappendiceal fat stranding (possible -inflammation vs. trace ascites). Otherwise unremarkable. -Per surg, scheduled for lap appendectomy today. -NPO -Pain control per surg; Morphine 4 Q3H PRN for pain, Oxy 7.5 Q4H PRN, IV/PO Tylenol -Received Zosyn 3.375 -Pt is low-risk, with no comorbid conditions, and is medically optimized to undergo procedure. #FEN -IV LR @ 100ml/hr -recheck lytes in AM -NPO for surgery #DVT ppx -SCDs, hold Lovenox Dispo -Monitor on med-surg ATTENDING PHYSICIAN STATEMENT I saw and evaluated the patient. I reviewed the resident's note and discussed the case with the resident. I agree with the resident's findings and plan as documented. SUBJECTIVE: OBJECTIVE: ASSESSMENT AND PLAN:
[2018-11-03] MEDS ORDERED: DEXTROSE 5%-WATER - 50 ML IVPB ONE ×3 (13:08→23:11)
[2018-11-03] MEDS ORDERED: PIPERACILLIN/TAZOBACTAM 3.375 GM VIAL IVPB ONE ×3 (13:08→23:11)
[2018-11-03] MEDS: morphine SULFATE 4 MG/ML VIAL IVPB PRN ×2 (13:11→19:33)
[2018-11-03] MEDS: PIPERACILLIN/TAZOB 3.375 GM 3.375 GM in DEXTROSE 5%-WATER - 50 ML IVPB SCH ×2 (13:15→19:37)
--- NOTE | 2018-11-03 14:29 | OP ---
Operative Note - Note: Operative Date: 11/03/18 Pre-Operative Diagnosis: acute appendicitis Operation: laparoscopic appendectomy, lavage Findings: non perforated appendicitis Post-Operative Diagnosis: Same as Pre-op Surgeon: Jim Jain Anesthesiologist/STRIP DEBURRER: Jack Murillo Anesthesia: General Specimens Removed: appendix Estimated Blood Loss (mls): 10 Operative Report Dictated: Yes
--- NOTE | 2018-11-03 18:06 | PN ---
Teaching Attending Note Name of Resident: Bruna Coronado ATTENDING PHYSICIAN STATEMENT I saw and evaluated the patient. I reviewed the resident's note and discussed the case with the resident. I agree with the resident's findings and plan as documented. SUBJECTIVE: Patient comfortable s/p laparoscopic appendectomy. OBJECTIVE: Vital Signs Period Temp Pulse Resp BP Sys/Perales Pulse Ox Last 24 Hr 98.2 F-100.3 F 79-99 16-18 118-145/68-91 97-100 HEART: S1S2, RRR LUNGS: Clear ABDOMEN: Soft, mild distention, mild diffuse tenderness, normal BS EXTREMITIES: No edema Laboratory Results - last 24 hr 11/02/18 11/02/18 11/02/18 21:30 21:30 22:00 WBC 10.0 RBC 5.34 Hgb 14.7 Hct 45.5 MCV 85.1 MCH 27.6 MCHC 32.4 RDW 13.2 Plt Count 245 MPV 7.5 Absolute Neuts (auto) 7.5 Total Counted 100 Neutrophils % 75.2 D Neutrophils % (Manual) 74.7 Band Neutrophils % 0.0 Lymphocytes % 15.6 D Lymphocytes % (Manual) 15.2 Monocytes % 8.8 Monocytes % (Manual) 7 Eosinophils % 0.1 D Eosinophils % (Manual) 0.0 Basophils % 0.3 Basophils % (Manual) 0.0 Myelocytes % (Man) 0 Promyelocytes % (Man) 0 Blast Cells % (Manual) 0 Nucleated RBC % 0 Metamyelocytes 0 Hypochromia 0 Platelet Estimate Normal Polychromasia 1+ Poikilocytosis 0 Anisocytosis 0 Microcytosis 0 Macrocytosis 1+ PT with INR INR Sodium 139 Potassium 3.7 Chloride 102 Carbon Dioxide 30 Anion Gap 7 L BUN 9.0 Creatinine 1.1 Est GFR (CKD-EPI)AfAm 103.85 Est GFR (CKD-EPI)NonAf 89.61 Random Glucose 84 Calcium 9.4 Total Bilirubin 1.0 AST 17 ALT 27 Alkaline Phosphatase 80 Total Protein 8.4 H Albumin 4.2 Lipase 99 Urine Color Yellow Urine Appearance Clear Urine pH 7.0 Ur Specific [place] 1.020 Urine Protein Trace Urine Glucose (UA) Negative Urine Ketones Negative Urine Blood Negative Urine Nitrite Negative Urine Bilirubin Negative Urine Urobilinogen 1.0 Ur Leukocyte Esterase Negative Urine WBC (Auto) 1.1 Urine RBC (Auto) 0.6 Urine Casts (Auto) 7.8 U Epithel Cells (Auto) 1.4 Urine Bacteria (Auto) 9.5 Blood Type Antibody Screen 11/03/18 11/03/18 11/03/18 02:14 02:14 06:27 WBC 8.1 RBC 4.71 Hgb 13.3 Hct 39.6 MCV 83.9 MCH 28.1 MCHC 33.5 RDW 13.1 Plt Count 217 MPV 7.6 Absolute Neuts (auto) 5.4 Total Counted Neutrophils % 67.2 Neutrophils % (Manual) Band Neutrophils % Lymphocytes % 20.9 D Lymphocytes % (Manual) Monocytes % 10.8 H Monocytes % (Manual) Eosinophils % 0.7 D Eosinophils % (Manual) Basophils % 0.4 Basophils % (Manual) Myelocytes % (Man) Promyelocytes % (Man) Blast Cells % (Manual) Nucleated RBC % 0 Metamyelocytes Hypochromia Platelet Estimate Polychromasia Poikilocytosis Anisocytosis Microcytosis Macrocytosis PT with INR 13.80 H INR 1.17 H Sodium Potassium Chloride Carbon Dioxide Anion Gap BUN Creatinine Est GFR (CKD-EPI)AfAm Est GFR (CKD-EPI)NonAf Random Glucose Calcium Total Bilirubin AST ALT Alkaline Phosphatase Total Protein Albumin Lipase Urine Color Urine Appearance Urine pH Ur Specific [place] Urine Protein Urine Glucose (UA) Urine Ketones Urine Blood Urine Nitrite Urine Bilirubin Urine Urobilinogen Ur Leukocyte Esterase Urine WBC (Auto) Urine RBC (Auto) Urine Casts (Auto) U Epithel Cells (Auto) Urine Bacteria (Auto) Blood Type B POSITIVE Antibody Screen Negative 11/03/18 11/03/18 06:27 06:27 WBC RBC Hgb Hct MCV MCH MCHC RDW Plt Count MPV Absolute Neuts (auto) Total Counted Neutrophils % Neutrophils % (Manual) Band Neutrophils % Lymphocytes % Lymphocytes % (Manual) Monocytes % Monocytes % (Manual) Eosinophils % Eosinophils % (Manual) Basophils % Basophils % (Manual) Myelocytes % (Man) Promyelocytes % (Man) Blast Cells % (Manual) Nucleated RBC % Metamyelocytes Hypochromia Platelet Estimate Polychromasia Poikilocytosis Anisocytosis Microcytosis Macrocytosis PT with INR INR Sodium 140 Potassium 3.6 Chloride 107 Carbon Dioxide 27 Anion Gap 7 L BUN 9.0 Creatinine 1.0 Est GFR (CKD-EPI)AfAm 116.54 Est GFR (CKD-EPI)NonAf 100.55 Random Glucose 83 Calcium 8.9 Total Bilirubin 1.4 H AST 13 L ALT 20 Alkaline Phosphatase 67 Total Protein 6.8 Albumin 3.3 L Lipase Urine Color Urine Appearance Urine pH Ur Specific [place] Urine Protein Urine Glucose (UA) Urine Ketones Urine Blood Urine Nitrite Urine Bilirubin Urine Urobilinogen Ur Leukocyte Esterase Urine WBC (Auto) Urine RBC (Auto) Urine Casts (Auto) U Epithel Cells (Auto) Urine Bacteria (Auto) Blood Type B POSITIVE Antibody Screen Current Medications Generic Name Dose Route Start Last Admin Trade Name Freq PRN Reason Stop Dose Admin Acetaminophen 650 mg 11/03/18 10:06 Tylenol - PO Q4H PRN FEVER Acetaminophen 1,000 mg 11/03/18 10:32 Ofirmev Injection - IVPB Q6H PRN PAIN OR FEVER Enoxaparin Sodium 40 mg 11/04/18 10:00 Lovenox - SQ DAILY ROBIN Lactated Ringer's 1,000 ml in 1,000 mls @ 100 mls/hr 11/03/18 11:22 11/03/18 11:46 Lactated Ringers Solution IV 200 mls ASDIR ROBIN Administration Piperacillin Sod/Tazobactam 50 mls @ 100 mls/hr 11/03/18 12:00 11/03/18 13:15 Sod 3.375 gm/ Dextrose IVPB 11/04/18 00:29 100 mls/hr Q6H ROBIN Administration Morphine Sulfate 4 mg 11/03/18 10:06 11/03/18 13:11 Morphine Sulfate IVPB 4 mg Q3H PRN Administration PAIN LEVEL 7 - 10 Ondansetron HCl 4 mg 11/03/18 10:31 Zofran Injection IVPUSH Q6H PRN NAUSEA AND/OR VOMITING Oxycodone HCl 7.5 mg 11/03/18 10:06 Roxicodone - PO Q4H PRN PAIN LEVEL 4 - 6 Pantoprazole Sodium 40 mg 11/04/18 10:00 Protonix Iv IVPUSH DAILY ROBIN ASSESSMENT AND PLAN: This is a 28 year old man with a history of kidney stones who presented to the ED with LLQ abdominal pain, nausea, and vomiting. 1. Acute appendicitis - s/p laparoscopic appendectomy today - Pain control - Ambulation - Incentive spirometer
--- NOTE | 2018-11-03 21:33 | OP ---
DATE OF OPERATION: 11/03/2018 PREOPERATIVE DIAGNOSIS: Acute appendicitis. POSTOPERATIVE DIAGNOSIS: Acute appendicitis. PROCEDURE: Laparoscopic appendectomy and lavage. SURGEON: Jim Jain DO PARACHUTE FOLDER: None. ANESTHESIOLOGIST: Jack Murilol, REF-DO SPECIMEN: Appendix. FINDINGS: A thick and inflamed distal half of the appendix. BLOOD LOSS: Minimal. DRAINS: None. COMPLICATIONS: None. DISPOSITION: Recovery in stable condition. BRIEF HISTORY: This is a 28-year-old male who presented to [facility] with signs and symptoms of acute appendicitis. He presents now for surgery, is already on Zosyn antibiotic. DESCRIPTION OF PROCEDURE: The patient was placed in supine position. Next, general anesthesia was initiated. The abdomen was prepped and draped in sterile fashion. A vertical incision was made infraumbilical with scalpel used to go through skin and subcutaneous tissue. The fascia was lifted with Jolie clamp, incised vertically. The peritoneum was entered bluntly. Next, a 0 Vicryl stitch was placed across the fascial defect and used to secure the Janna trocar. Pneumoperitoneum was then created. Of note, there was a ventral hernia above this incision, which was not addressed at the time of surgery. Next, a 5-mm, 30-degree laparoscope was placed, followed by two 5-mm trocars being inserted, one suprapubic and one in the left lower quadrant. Attention was then turned the right lower quadrant. The appendix was seen and was thick and inflamed distally. A window was made at its base. The LigaSure device was used to divide the mesoappendix with multiple welds. The Ethicon Endo RICK vascular stapler was used to divide the appendix at its base in 1 firing. The staple line was inspected. It was intact. There was no bleeding. No breaks. No sign of ischemia. At this point, the appendix was placed in a specimen bag, removed through the infraumbilical trocar site, and sent to Pathology marked as specimen. A limited lavage was done. All return was clear. Inflammatory fluid from the pelvis was suctioned as well. At this point, trocars were removed under direct visualization as pneumoperitoneum was released. The fascia at the infraumbilical trocar site was then closed with multiple interrupted 0 Vicryl sutures. Again, the hernia above this was not addressed. The 3 skin incisions were closed with Biosyn, and Dermabond dressing was placed. Overall, the patient tolerated the procedure well. There were no complications. DO MEGAN PACHECO/[id number] MTDD
[2018-11-04] MEDS: PIPERACILLIN/TAZOB 3.375 GM 3.375 GM in DEXTROSE 5%-WATER - 50 ML IVPB SCH (00:07)
[2018-11-04 08:00] LABS: HEMATOCRIT 40.4 % (35.4-49); HEMOGLOBIN 13.6 GM/dL (11.7-16.9); MCH 28.3 pg (25.7-33.7); MCHC 33.5 g/dl (32.0-35.9); MEAN CELL VOLUME 84.4 fl (80-96); MEAN PLT VOLUME 7.6 fl (7.5-11.1); PLATELET COUNT 244 K/MM3 (134-434); RBC 4.79 M/mm3 (4.00-5.60); RDW 13.1 % (11.9-15.9)
[2018-11-04 08:20] LABS: BLOOD UREA NITROGEN 9.5 mg/dL (7-18); CALCIUM 9.4 mg/dL (8.5-10.1); POTASSIUM 4.1 mmol/L (3.5-5.1)
--- NOTE | 2018-11-04 08:49 | PN ---
Progress Note (short form) - Note Progress Note: 28yo M s/p Lap appy POD 1, pt seen and examined at bedside. Pt states he is feeling well, pt denies fever, chills, n/v. Pt tolerating PO, urinating and ambulating well. Pt state abd pain is controlled. Last Vital Signs Temp Pulse Resp BP Pulse Ox 97.9 F 68 18 106/61 97 11/04/18 06:00 11/04/18 06:00 11/04/18 06:00 11/04/18 06:00 11/03/18 21:00 CBC, BMP 11/04/18 06:57 11/04/18 06:57 PE: Gen: A&O x 3 Resp: breathing comfortably Abd: soft, nondistended, mild tenderness, incisions are clean with on erythema or discharge Ext: no edema Problem List - Problems (1) Appendicitis Assessment/Plan: Plan - pt appears to be doing well, is cleared to be discharged home from surgery standpoint -pt should follow up with Dr. Jain in 2 weeks for outpatient follow up. Pt should not need any narcotics for home. Case discussed with Dr. Jain who agrees with plan. Code(s): K37 - UNSPECIFIED APPENDICITIS Qualifiers: Appendicitis type: acute appendicitis Acute appendicitis type: unspecified acute appendicitis type Qualified Code(s): K35.80 - Unspecified acute appendicitis
[2018-11-04] MEDS ORDERED: PANTOPRAZOLE SODIUM 40 MG VIAL IVPUSH SCH (10:00)
[2018-11-04] MEDS ORDERED: ENOXAPARIN NA (PORCINE) 40 MG/0.4 ML DISP.SYRIN SQ SCH (10:00)
[2018-11-04 15:29] VITALS: BP 123/69; PULSE 78; TEMP 99.5
--- NOTE | 2018-11-04 15:40 | PATH ---
Surgical Pathology Report Patient Name: SUZANNA JACKSON Med. Rec. #: [id number] /Age/Gender: 1990 (Age: 28) / M Account: [id number] Location: [address] [place] [address] Taken: 11/03/2018 Received: 11/03/2018 Reported: 11/04/2018 Physicians: Jim Jain M.D. Specimen(s) Received APPENDIX Clinical History Lower abdominal pain, appendicitis Final Diagnosis APPENDIX, LAPAROSCOPIC APPENDECTOMY: ACUTE APPENDICITIS WITH PERIAPPENDICITIS. Electronically Signed Laquita Garcia M.D. Gross Description Received in formalin, labeled "appendix," is an 8.5 cm. in length vermiform appendix with a stapled margin of resection and abundant attached fat. The serosa is anguiano with attached exudate. Sectioning reveals a dilated lumen containing pus. The wall of the appendix averages 0.1 cm. in thickness. Senior Information Systems Architect sections are submitted in one cassette. /11/03/2018 saudi11/03/2018
--- NOTE | 2018-11-04 15:41 | DS ---
Physical Exam: SUBJECTIVE: [facility] and [facility], AOx3, in no acute distress. OBJECTIVE: Vital Signs Period Temp Pulse Resp BP Sys/Perales Pulse Ox Last 24 Hr 97.6 F-98.3 F 62-72 18-20 105-127/60-82 97 PHYSICAL EXAM GENERAL: The patient is awake, alert, and fully oriented, in no acute distress. HEAD: Normal with no signs of trauma. EYES: PERRL, extraocular movements intact, sclera anicteric, conjunctiva clear. ENT: Ears normal, nares patent, oropharynx clear without exudates, moist mucous membranes. NECK: Trachea midline, full range of motion, supple. LUNGS: Breath sounds equal, clear to auscultation bilaterally, no wheezes, no crackles, no accessory muscle use. HEART: Regular rate and rhythm, S1, S2 without murmur, rub or gallop. ABDOMEN: Soft, tenderness in umbilical region, nondistended, normoactive bowel sounds, no guarding, no rebound, no hepatosplenomegaly, no masses. EXTREMITIES: 2+ pulses, warm, well-perfused, no edema. NEUROLOGICAL: Cranial nerves II through XII grossly intact. Normal speech, gait not observed. PSYCH: Normal mood, normal affect. SKIN: Warm, dry, normal turgor, no rashes or lesions noted. LABS Laboratory Results - last 24 hr 11/04/18 11/04/18 06:57 06:57 WBC 8.0 RBC 4.79 Hgb 13.6 Hct 40.4 MCV 84.4 MCH 28.3 MCHC 33.5 RDW 13.1 Plt Count 244 MPV 7.6 Sodium 140 Potassium 4.1 Chloride 106 Carbon Dioxide 28 Anion Gap 7 L BUN 9.5 Creatinine 1.0 Est GFR (CKD-EPI)AfAm 116.54 Est GFR (CKD-EPI)NonAf 100.55 Random Glucose 94 Calcium 9.4 HOSPITAL COURSE: Date of Admission:11/03/18 This is a 28 year old male with PMH of kidney stones, who presented to the ER with LLQ pain associated with nausea and non bloody, non bilious vomiting. Date of Discharge: 11/04/18 CT Abdomen Pelvis was performed, and was suggestive of appendicitis. Laproscopic appendectomy was performed by Dr. Jain, without complications. On the first post op day, patient states pain is down to 5/10, is tolerating diet, has been passing gas but has not had a bowel movement, is afebrile and WBC is 9.1. He is now being discharged home on Oxycodone 10mg Q4 for 3 days for pain management, and has been asked to follow up with surgery and his PCP within 2 weeks. Discharge Summary Reason For Visit: LOWER ABDOMINAL PAIN Condition: Improved - Instructions Diet, Activity, Other Instructions: You were seen in the hospital after complaints of abdominal pain. We performed a scan of your abdomen (CT scan), which showed that you have appendicitis. You were evaluated by our surgeon, who recommended a laparoscopic removal of the appendix (appendectomy). After your surgery, you were given medicine to manage your pain, IV fluids, and antibiotics. Your symptoms have now improved, and you are being discharged. Medications - If needed for pain, please take 1-2 tablets of Oxycodone 5mg by mouth, not more than 2 tablets every 4 hours. Follow Up: - Please follow up with your surgeon, Dr. Jain, within 2 weeks [phone] - Please follow up with your primary care physician within 2 weeks. If you do not have one, you can make an appointment with Dr. Romero at [facility] in the [facility] . Additional Information: If you experience worsening abdominal pain, fever/chills, nausea/vomiting, chest pain or shortness of breath, please proceed to your nearest emergency room immediately. Referrals: Alireza Romero RES [Resident] - 1 Week Jim Jain MD [Staff Physician] - 1 Week Disposition: HOME - Home Medications Comprehensive Discharge Medication List: Ambulatory Orders Acetaminophen [Tylenol .Regular Strength -] 650 mg PO Q4H PRN tablet 11/04/18 Oxycodone HCl 1 - 2 tab PO Q6H PRN #20 tablet MDD 8 tabs 11/04/18 ATTENDING PHYSICIAN STATEMENT I saw and evaluated the patient. I reviewed the resident's note and discussed the case with the resident. I agree with the resident's findings and plan as documented. SUBJECTIVE: OBJECTIVE: ASSESSMENT AND PLAN:
--- NOTE | 2018-11-04 15:55 | PN ---
Teaching Attending Note Name of Resident: Alireza Romero ATTENDING PHYSICIAN STATEMENT I saw and evaluated the patient. I reviewed the resident's note and discussed the case with the resident. I agree with the resident's findings and plan as documented. SUBJECTIVE: OBJECTIVE: Vital Signs Period Temp Pulse Resp BP Sys/Perales Pulse Ox Last 24 Hr 97.6 F-99.5 F 62-78 18-20 105-127/60-82 97 Laboratory Results - last 24 hr 11/04/18 11/04/18 06:57 06:57 WBC 8.0 RBC 4.79 Hgb 13.6 Hct 40.4 MCV 84.4 MCH 28.3 MCHC 33.5 RDW 13.1 Plt Count 244 MPV 7.6 Sodium 140 Potassium 4.1 Chloride 106 Carbon Dioxide 28 Anion Gap 7 L BUN 9.5 Creatinine 1.0 Est GFR (CKD-EPI)AfAm 116.54 Est GFR (CKD-EPI)NonAf 100.55 Random Glucose 94 Calcium 9.4 Current Medications Generic Name Dose Route Start Last Admin Trade Name Freq PRN Reason Stop Dose Admin Acetaminophen 650 mg 11/03/18 10:06 Tylenol - PO Q4H PRN FEVER Acetaminophen 1,000 mg 11/03/18 10:32 Ofirmev Injection - IVPB Q6H PRN PAIN OR FEVER Enoxaparin Sodium 40 mg 11/04/18 10:00 11/04/18 09:09 Lovenox - SQ 40 mg DAILY ROBIN Administration Lactated Ringer's 1,000 ml in 1,000 mls @ 100 mls/hr 11/03/18 11:22 11/03/18 11:46 Lactated Ringers Solution IV 200 mls ASDIR ROBIN Administration Morphine Sulfate 4 mg 11/03/18 10:06 11/03/18 19:33 Morphine Sulfate IVPB 4 mg Q3H PRN Administration PAIN LEVEL 7 - 10 Ondansetron HCl 4 mg 11/03/18 10:31 Zofran Injection IVPUSH Q6H PRN NAUSEA AND/OR VOMITING Oxycodone HCl 7.5 mg 11/03/18 10:06 Roxicodone - PO Q4H PRN PAIN LEVEL 4 - 6 Pantoprazole Sodium 40 mg 11/04/18 10:00 11/04/18 09:09 Protonix Iv IVPUSH 40 mg DAILY ROBIN Administration ASSESSMENT AND PLAN:
== END 2018-11-04 16:44 | disposition home or self-care (01) | DRG 225 ==
LOC: JER 19:03 → JERBED 11-03 00:50 → J5S 11-03 12:23
PROVIDERS: ADMIT Internal Medicine; ATTEND Internal Medicine
PROC: 3E1M38Z Irrigation of Peritoneal Cavity using Irrigating Substance, Percutaneous Approach (ICD-10-PCS; 2018-11-03)
PROC: 0DTJ4ZZ Resection of Appendix, Percutaneous Endoscopic Approach (ICD-10-PCS; principal; 2018-11-03 08:30)
DX: K35.80 Unspecified acute appendicitis (principal); R10.32 Left lower quadrant pain; R18.8 Other ascites; Z72.89 Other problems related to lifestyle; R11.2 Nausea with vomiting, unspecified
CPT/HCPCS: 36415; 74176-TC; 80048; 80053; 81003; 83690; 85025; 85027; 85610; 86850; 86900; 86901; 87086; 88304-TC; 93005; 93010; 94010; 94760; 99285-25